=== PATIENT | female | born 1970 | race Caucasian/White ===

== ENCOUNTER 2023-04-10 22:26 | Emergency (ER) | payer BC, OTHER ==
[~2023-04-10] VITALS: Ht 170.2 cm; Wt 79.4 kg
[2023-04-10 22:38] VITALS: BP_SYST 99; PULSE 90; RESP 18; TEMP 98.4; O2SAT 98
--- NOTE | 2023-04-10 23:05 | NUR ---
ER at bedside examining patient.
[2023-04-10] MEDS ORDERED: ONDANSETRON HCL 4 MG/2 ML VIAL IVP ONE (23:15)
[2023-04-10] MEDS ORDERED: NACL 0.9% 1,000 ML IV ONE (23:15)
--- NOTE | 2023-04-10 23:29 | NUR ---
Patient to ER bed 02 to gown for evaluation. Side rails up. Report given to D[facility]IS [facility].
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
--- NOTE | 2023-04-10 23:48 | NUR ---
PT TO CT
--- NOTE | 2023-04-10 23:54 | NUR ---
PT BACK FROM CT
--- NOTE | 2023-04-10 23:57 | NUR ---
CONNECTED TO CONTINOUS VS MONITORING, SAFETY RAILS UP.
[2023-04-11 00:25] LABS: BASOPHILS % (AUTO) 0.1 % (0.0-2.0); EOSINOPHILS % (AUTO) 0.1 % (0.0-4.0); HEMATOCRIT 43.7 % (36-48); HEMOGLOBIN 14.4 g/dL (12.0-16.0); LYMPHOCYTES # (AUTO) 0.5 K/uL (1.0-5.5); LYMPHOCYTES % (AUTO) 4.3 % (20.5-51.5); MEAN CORPUSCULAR HEMOGLOBIN 29 pg (27-31); MEAN CORPUSCULAR HGB CONC 33 % (32-36); MEAN CORPUSCULAR VOLUME 87 fL (79.0-98.0); MONOCYTES # (AUTO) 0.4 K/uL (0.0-1.0); MONOCYTES % (AUTO) 3.6 % (1.7-9.3); NEUTROPHILS # (AUTO) 9.6 K/uL (1.8-7.7); NEUTROPHILS % (AUTO) 91.9 % (40.0-70.0); PLATELET COUNT (AUTO) 215 K/uL (130-430); RED BLOOD CELL COUNT(AUTO) 5.02 MIL/uL (4.2-6.2); RED CELL DISTRIBUTION WIDTH 13.5 % (9.0-15.0); WHITE BLOOD COUNT (AUTO) 10.5 K/uL (4.8-10.8)
[2023-04-11 00:44] LABS: ALANINE AMINOTRANSFERASE 16 U/L (12-78); ANION GAP 10 (5-15); ASPARTATE AMINOTRANSFERASE 24 U/L (10-37); CALCIUM 8.7 mg/dL (8.4-11.0); CHLORIDE 99 mmol/L (98-107); CREATININE 0.93 mg/dL (0.55-1.30); GFR AFRICAN AMERICAN 81 mL/min (>90); GLUCOSE 146 mg/dL (74-106); TOTAL BILIRUBIN 0.4 mg/dL (0.0-1.0); UREA NITROGEN, BLOOD 10 mg/dL (8-21)
[2023-04-11 00:46] LABS: ALCOHOL, BLOOD 10 mg/dL (<10)
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
[2023-04-11] MEDS ORDERED: ONDA-8 TL (03:04)
--- NOTE | 2023-04-11 03:30 | NUR ---
PT AMBULATORY TO RR, BACK TO [facility] LEONARDO, EVEN UNLABORED RR, SPOUSE AT BEDSIDE.
[2023-04-11 03:35] VITALS: BP_SYST 106; PULSE 92; RESP 20; TEMP 98.4; O2SAT 95
--- NOTE | 2023-04-11 03:39 | NUR ---
Patient given written and verbal discharge instructions and verbalizes understanding. ER MD discussed with patient the results and treatment provided. Patient in stable condition. ID arm band removed. IV catheter removed intact and dressing applied, no active bleeding. Rx of ZOFRAN given. Patient educated on SYNCOPE,AND VIRAL GASTROENTERITIS pain management and to follow up with PMD. Pain Scale 0. Opportunity for questions provided and answered. Medication side effect fact sheet provided.
== END 2023-04-11 03:35 | disposition home or self-care (01) ==
LOC: SED 22:26
DX: K52.9 Noninfective gastroenteritis and colitis, unspecified (principal); R55 Syncope and collapse; R11.0 Nausea; Z79.899 Other long term (current) drug therapy
CPT/HCPCS: 99285; 96374; 70450; 71045; 96361; 80053; 82962; 85025; 84484; 36415; 93005; 76376; 83605; G0482; J2405; J7030